=== PATIENT | male | born 1990 ===

== ENCOUNTER 2017-12-03 18:18 | Emergency (ER) | payer OTHER ==
[2017-12-03 20:19] VITALS: BP 114/73; PULSE 93; RESP 18; TEMP 99.8; O2SAT 98
--- NOTE | 2017-12-03 20:44 | ED PDOC ---
Arrival/HPI - General Historian: Patient - History of Present Illness Time/Duration: Other (1 day) Symptom Onset: Sudden Symptom Course: Intermittent Quality: Aching Severity Level: 5 <Deb Jimenes - Last Filed: 12/03/17 20:31> <Reginald Lovell - Last Filed: 12/03/17 20:52> - General Chief Complaint: Flu-like Symptoms Time Seen by Provider: 12/03/17 19:21 - History of Present Illness Narrative History of Present Illness (Text): 12/03/17 20:34 27yr old male with cough, nasal congestion, sore throat, bodyaches since yesterday. pt with high fevers at home. states he thinks he has the flu. no vomiting/diarrhea. no cp or sob. no sick contacts. pt denies dizziness or weakness. no other complaints. pt states he did not get the flu shot. (Deb Jimenes) Past Medical History - Provider Review Nursing Documentation Reviewed: Yes - Travel History Have you recently traveled outside [place] w/in the past 3 mons?: No - Tetanus Immunization Tetanus Immunization: Unknown - Psychiatric Hx Psychophysiologic Disorder: No Hx Substance Use: No - Surgical History Other/Comment: HERNIA REPAIR - Anesthesia Hx Anesthesia: Yes <Deb Jimenes - Last Filed: 12/03/17 20:31> Family/Social History - Physician Review Nursing Documentation Reviewed: Yes Family/Social History: Unknown Family HX Smoking Status: Never Smoked Hx Alcohol Use: No Hx Substance Use: No <Deb Jimenes - Last Filed: 12/03/17 20:31> Allergies/Home Meds <Deb Jimenes - Last Filed: 12/03/17 20:31> <Reginald Lovell - Last Filed: 12/03/17 20:52> Allergies/Adverse Reactions: Allergies FISH Allergy (Verified 12/03/17 18:52) SHORTNESS OF BREATH Review of Systems - Review of Systems Constitutional: Fatigue, Fevers ENT: Sore Throat, Sinus Congestion Respiratory: Cough. absent: SOB Cardiovascular: absent: Chest Pain Gastrointestinal: absent: Abdominal Pain, Nausea, Vomiting Genitourinary Male: absent: Dysuria Musculoskeletal: absent: Arthralgias Skin: absent: Rash, Pruritis Neurological: absent: Headache, Dizziness Psychiatric: absent: Anxiety, Depression <Deb Jimenes - Last Filed: 12/03/17 20:31> Physical Exam Vital Signs Reviewed: Yes Temperature: Febrile Blood Pressure: Normal Pulse: Tachycardic Respiratory Rate: Normal Appearance: Positive for: Well-Appearing, Non-Toxic, Comfortable Pain Distress: None Mental Status: Positive for: Alert and Oriented X 3 - Systems Exam Head: Present: Atraumatic Mouth: Present: Moist Mucous Membranes. No: Drooling, Trismus Pharnyx: Present: Normal. No: ERYTHEMA, EXUDATE, TONSILS ENLARGED, Peritonsilar Swelling, Uvular Deviation, Muffled/Hoarse Voice Nose (External): Present: Atraumatic Nose (Internal): Present: Normal Inspection Neck: Present: Normal Range of Motion, Trachea Midline. No: Lymphadenopathy Respiratory/Chest: Present: Clear to Auscultation, Good Air Exchange. No: Respiratory Distress, Accessory Muscle Use Cardiovascular: Present: Regular Rate and Rhythm, Normal S1, S2. No: Murmurs Abdomen: No: Tenderness Upper Extremity: Present: Normal ROM Lower Extremity: Present: Normal ROM Neurological: Present: GCS=15, Speech Normal Skin: Present: Warm, Dry, Normal Color. No: Rashes Psychiatric: Present: Alert, Oriented x 3 <Deb Jimenes - Last Filed: 12/03/17 20:31> Vital Signs Temp Pulse Resp BP Pulse Ox 12/03/17 20:18 99.8 F H 93 H 18 114/73 98 12/03/17 18:54 102.5 F H 105 H 16 111/73 97 Medical Decision Making Reassessment Condition: Re-examined, Improved <Deb Jimenes - Last Filed: 12/03/17 20:31> <Reginald Lovell - Last Filed: 12/03/17 20:52> ED Course and Treatment: 12/03/17 20:46 Patient is nontoxic well-appearing. C/o flu-like symptoms. febrile. no distress. tylenol PO Motrin cxr; no infiltrate or effusion. Tamiflu po Patient reassessment: Pt feeling better; vitals stable. discussed all results with patient. I advised follow up with primary care physician within the next 2 days. I advised increase fluids and return if symptoms worsen persist or if new symptoms develop Patient verbalizes understanding of discharge instructions and need for immediate followup. all aspects of this case were discussed the attending of record. IMPRESSION; Influenza Motrin one tablet every 6 hours as needed for pain Tamiflu: 1 capsule twice daily 5 days Increase fluids Followup with primary care physician the next 2 days Return if symptoms worsen persist or if new symptoms develop: Continued high fevers, dizziness, weakness, chest pain or shortness of breath vomiting/diarrhea , or if any other concerning symptoms develop 12/03/17 20:48 (Deb Jimenes) - RAD Interpretation Radiology Orders: 12/03/17 19:31 CHEST TWO VIEWS (PA/LAT) [RAD] Stat - Medication Orders Current Medication Orders: Discontinued Medications Acetaminophen (Tylenol 325mg Tab) 975 mg PO STAT STA Stop: 12/03/17 19:22 Last Admin: 12/03/17 19:30 Dose: 975 mg MAR Pain/Vitals Document 12/03/17 19:30 EQ (Rec: 12/03/17 19:30 EQ [email or web address]) Pain Reassessment Is This A Pain ReAssessment? No Sleep Is patient sleeping during reassessment? No Presence of Pain Presence of Pain Yes Ibuprofen (Motrin Tab) 600 mg PO STAT STA Stop: 12/03/17 19:22 Last Admin: 12/03/17 19:30 Dose: 600 mg MAR Pain/Vitals Document 12/03/17 19:30 EQ (Rec: 12/03/17 19:30 EQ [email or web address]) Pain Reassessment Is This A Pain ReAssessment? No Sleep Is patient sleeping during reassessment? 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 <Reginald Lovell - Last Filed: 12/03/17 20:52> Disposition/Present on Arrival - Present on Arrival Any Indicators Present on Arrival: No History of DVT/PE: No History of Uncontrolled Diabetes: No Urinary Catheter: No History of Decub. Ulcer: No History Surgical Site Infection Following: None - Disposition Have Diagnosis and Disposition been Completed?: Yes Disposition Time: 20:32 Patient Plan: Discharge <Deb Jimenes - Last Filed: 12/03/17 20:31> <NasReginald - Last Filed: 12/03/17 20:52> - Disposition Diagnosis: Influenza Disposition: HOME/ ROUTINE Patient Problems: Current Active Problems Problem Status Onset Influenza Acute Condition: GOOD Discharge Instructions (ExitCare): Influenza (ED) Additional Instructions: Motrin one tablet every 6 hours as needed for pain/fever reduction Tamiflu: 1 capsule twice daily 5 days Increase fluids Followup with primary care physician the next 2 days Return if symptoms worsen persist or if new symptoms develop: Continued high fevers, dizziness, weakness, chest pain or shortness of breath vomiting/diarrhea , or if any other concerning symptoms develop Prescriptions: Ibuprofen [Motrin] 600 mg PO Q6H PRN #20 tab PRN Reason: pain/fever reduction Oseltamivir [Tamiflu] 75 mg PO BID #10 cap Referrals: PCP,NO [Primary Care Provider] - Follow up with primary Lefty Carmichael DO [Staff Provider] - Follow up with primary [facility] [place] [Outside] - Follow up with primary Forms: [facility] (Spanish), WORK NOTE
--- NOTE | 2017-12-04 08:35 | RAD ---
HISTORY: cough/fever COMPARISON: No prior. TECHNIQUE: Chest PA and lateral FINDINGS: LUNGS: No active pulmonary disease. PLEURA: No significant pleural effusion identified. No pneumothorax apparent. CARDIOVASCULAR: Normal. OSSEOUS STRUCTURES: No significant abnormalities. VISUALIZED UPPER ABDOMEN: Normal. OTHER FINDINGS: Mild rightward rotation of the chest in this exam. IMPRESSION: No definitive acute cardiopulmonary is appreciable. If symptoms persist or worsen follow-up chest radiography or CT recommended.
== END 2017-12-03 21:12 | disposition home or self-care (01) ==
LOC: ED 18:18
DX: J11.1 Influenza due to unidentified influenza virus with other respiratory manifestations (principal)

== ENCOUNTER 2019-02-25 06:32 | Emergency (ER) | payer SELFPAY ==
--- NOTE | 2019-02-25 07:32 | ED PDOC ---
Arrival/HPI - General Chief Complaint: Abnormal Skin Integrity Time Seen by Provider: 02/25/19 07:18 Historian: Patient - History of Present Illness Narrative History of Present Illness (Text): 02/25/19 07:22 28 y.o male with no significant past medical history, who presents to the emergency department complaining of a swollen upper lip. Patient states popping a clear pimple on Saturday and noticing a gradual swelling to the upper lip on Saturday. Patient reports swelling improved on Saturday, but worsened on Saturday after being surrounded by dust at work. Patient states he has been using neosporin to help relive the swollen area with no significant change. Patient denies any skin rash, shortness of breath, nausea, vomiting, neck pain, headache, dizziness, or any other complaints. Time/Duration: > week (5 days ) Symptom Onset: Gradual Symptom Course: Unchanged Activities at Onset: Light Past Medical History - Provider Review Nursing Documentation Reviewed: Yes - Tetanus Immunization Tetanus Immunization: Unknown - Psychiatric Hx Psychophysiologic Disorder: No Hx Substance Use: No - Surgical History Other/Comment: HERNIA REPAIR - Anesthesia Hx Anesthesia: Yes Family/Social History - Physician Review Nursing Documentation Reviewed: Yes Smoking Status: Never Smoked Hx Alcohol Use: Yes Frequency of alcohol use: Socially Hx Substance Use: No Allergies/Home Meds Allergies/Adverse Reactions: Allergies FISH Allergy (Verified 12/03/17 18:52) SHORTNESS OF BREATH Review of Systems - Physician Review All systems were reviewed & negative as marked: Yes - Review of Systems Skin: Other (Swollen upper lip. ) Physical Exam - Physical Exam Narrative Physical Exam (Text): 02/25/19 07:35 Gen: VS reviewed, alert, well developed, well nourished, nontoxic, mild distress. ENT: normal pharynx. Eye: EOMI, PERRL. Neck: no JVD, supple, no adenopathy. CV: regular rate, regular rhythm, no rubs, no murmur, no gallops, S1, S2, pulses equal and strong. Pulm: no distress, clear to auscultation, no wheeze, no rhonchi, breath sounds equal, no rales. Abd: soft, nontender, no guarding, no rebound, no rigidity, normal bowel sounds. Ext: no edema. Skin: good color, no rash, no cyanosis. Psych: responds appropriately to questions, normal affect. Neuro: oriented x 3, CN2-12 intact grossly, motor intact, sensation intact. Vital Signs Reviewed: Yes Vital Signs Temp Pulse Resp BP Pulse Ox 02/25/19 06:44 98.6 F 72 18 150/89 96 Temperature: Afebrile Blood Pressure: Normal Pulse: Regular Respiratory Rate: Normal Appearance: Positive for: Well-Appearing, Non-Toxic, Comfortable Pain Distress: None Mental Status: Positive for: Alert and Oriented X 3 - Systems Exam Mouth: Present: Other (Postual upper lip. Surrounding swelling and tenderness. ) Medical Decision Making ED Course and Treatment: 02/26/19 11:19 patient was seen for upper lip swelling with central area consistent with a herpetic lesion, there were no lesions over the body to suggest disseminated illness. patient was empirically tx with abx for possible secondary bacterial infection. - Scribe Statement The provider has reviewed the documentation as recorded by the Scribe Shabana Jackson All medical record entries made by the Scribe were at my direction and personally dictated by me. I have reviewed the chart and agree that the record accurately reflects my personal performance of the history, physical exam, medical decision making, and the department course for this patient. I have also personally directed, reviewed, and agree with the discharge instructions and disposition. Disposition/Present on Arrival - Present on Arrival Any Indicators Present on Arrival: No History of DVT/PE: No History of Uncontrolled Diabetes: No Urinary Catheter: No History of Decub. Ulcer: No History Surgical Site Infection Following: None - Disposition Have Diagnosis and Disposition been Completed?: Yes Diagnosis: Herpes labialis Disposition: HOME/ ROUTINE Disposition Time: 11:20 Condition: STABLE Discharge Instructions (ExitCare): Cold Sores (Oral Herpes) Additional Instructions: Bacitracin return for any new or worsening symptoms especially fever greater than 100.4, sore/bumps/pimples seen on the rest of the body. Prescriptions: Acyclovir [Zovirax] 400 mg PO TID 10 Days #30 tablet Cephalexin [cephalexin] 500 mg PO BID 7 Days #14 cap Ibuprofen [Motrin Tab] 600 mg PO QID #42 tab Forms: [facility] (Stateless), WORK NOTE
[2019-02-25 07:40] VITALS: BP 145/82; PULSE 75; RESP 16; TEMP 98; O2SAT 99
== END 2019-02-25 07:39 | disposition home or self-care (01) ==
LOC: ED 06:32
DX: B00.1 Herpesviral vesicular dermatitis (principal)